=== PATIENT | male | born 2000 | race Caucasian/White ===

== ENCOUNTER 2018-02-18 23:39 | Day surgery (SDC) | payer OTHER, SELFPAY ==
[2018-02-18 23:40] VITALS: BP 133/88; PULSE 66; RESP 18; TEMP 36.4; O2SAT 97; BMI 22.6
--- NOTE | 2018-02-18 23:51 | US_ITS ---
STUDY: SCROTUM ULTRASOUND REASON FOR EXAM: Male, 17 years old. Right testicular pain and swelling TECHNIQUE: Ultrasound evaluation of the scrotum was performed with color Doppler and static min-scale imaging. COMPARISON: None. FINDINGS: The study was started but not completed. The patient's surgeon who was present at the examination asked the examination to be terminated once he saw there was no flow through the right testicle. . US/Testicular with Arterial Flow IMPRESSION: Incomplete study. Right testicular torsion suspected. Electronically Signed: Jase Pepe, at 1:25 EDT Tel , Service support ,
[2018-02-18] MEDS: Ondansetron 4 MG/2 ML Vial IV (23:57)
[2018-02-18] MEDS: HYDROmorphone 1 MG/ML Syringe IV (23:57)
[2018-02-19] VITALS (7 sets, daily range): BP systolic 94–122; BP diastolic 51–80; PULSE 69–102; RESP 15–16; TEMP 36.3–37.1; O2SAT 93–100; BMI 22.6
[2018-02-19 00:17] LABS: Absolute Lymphocyte Count 2.52 X10^3/ul (0.83-4.51); Absolute Neutrophil Count 3.6 X10^3/uL (2.0-7.7); Basophil# 0.03 X10^3/uL; Basophil% 0.4 % (0-1); Eosinophil# 0.08 X10^3/uL; Eosinophils% 1.2 % (0-5); Hemoglobin 15.2 g/dl (13.0-16.5); Lymphocyte # 2.52 X10^3/ul (4.0); Lymphocyte % 36.7 % (19-41); Mean Corp Hgb Conc 36.2 g/gl (32-36); Mean Corpuscular Volume 85.7 fL (80-94); Mean Platelet Vol. 10.9 fl (6.2-12.0); Monocyte% 8.7 % (0-10); Neutrophil # 3.63 X10^3/uL (2.7-7.7); Neutrophil % 52.9 % (47-70); Platelet Count 184 K/mm3 (150-450); RBC Distribution Width SD 37.2 fl (35.1-43.9); White Blood Count 6.9 K/mm3 (4.4-11.0)
[2018-02-19 00:18] LABS: POSITIVE COUNT NO; POSITIVE DIFFERENTIAL NO; POSITIVE MORPHOLOGY NO
--- NOTE | 2018-02-19 00:25 | HP.PCM_ITS ---
Problem List (1) Right testicular torsion Status: Acute History of Present Illness Date of Admission: 02/19/18 Chief Complaint: Right testicular pain The patient is a 17 year old male with a sudden onset of right testicular pain came to the emergency room with severe pain, on exam has a swollen right testicle consistent with torsion of the testicle plan is to take the patient immediately the emergency room and immediately to the operating room for exploration detorsion and orchiopexy, expanded the patient rare chance that the remove the testicle Past Medical History Allergies No Known Allergies Allergy (Verified 02/18/18 23:42) Home Medications: Ambulatory Orders Medication Instructions Recorded NK [NK] 02/18/18 Surgical History: no surgical history Psychiatric History: No pertinent psych hx Lives: Spouse/ Significant Other Smoking Status: Never smoker Tobacco Use: Non-smoker Alcohol: None Drugs: None - *Family History Maternal History Items: No pertinent history Review of Systems Constitutional: Denies: Chills, Fever, Weight Change HEENT: Denies: Head Aches, Sinus Congestion, Sinus Drainage Cardiovascular: Denies: Chest Pain, Palpitations Respiratory: Denies: Cough, Shortness of breath at rest, Sputum production Gastrointestinal: Denies: Abdominal Pain, Nausea, Vomiting Genitourinary: Denies: Dysuria Musculoskeletal: Denies: Joint Pain, Joint Tenderness Skin: Denies: Rash, Wounds Neurological: Denies: Numbness, Tingling, Focal weakness Psychiatric: Denies: Anxiety, Depression, Homicidal Ideations, Suicidal Ideations Hematologic/ Lymphatic: Denies: Easy Bruising, Easy Bleeding VTE Information - Inpt Only VTE Present on Admission: No VTE Mechan Device Prophylaxis: SCD's Patient Problems: Active and Suspected Problems Right testicular torsion (Acute) - Physical Exam General: Alert, Oriented x3, Cooperative HEENT: Atraumatic, PERRLA, EOMI, Normocephalic Neck: Supple, No JVD, Negative Carotid Bruits Lungs: Clear to auscultation, Normal air movement Cardiovascular: Regular rate, No murmurs Abdomen: Bowel Sounds Present, Soft, Non Tender Extremities: No edema, Capillary Refill Less than 3 Seconds Skin: No rashes, No breakdown Musculoskeletal: No Tenderness to Palpation of Joints or Extremities Neurological: Cranial nerves II-XII grossly intact Psych/Mental Status: Normal Affect, Appropriate Comment: Right testicle swollen black and blue and very tender Vital Signs Temp Pulse Resp BP Pulse Ox 97.6 F L 66 18 133/88 H 97 02/18/18 23:40 02/18/18 23:40 02/18/18 23:40 02/18/18 23:40 02/18/18 23:40 Oxygen Delivery Method Room Air Weight: 63.503 kg Body Mass Index (BMI) 22.6 Laboratory Tests Past 24 Hrs 02/18/18 02/18/18 23:59 23:59 WBC 6.9 RBC 4.90 Hgb 15.2 Hct 42.0 MCV 85.7 MCH 31.0 MCHC 36.2 H RDW 12.0 RDW Differential 37.2 Plt Count 184 MPV 10.9 Immature Gran % (Auto) 0.100 Neut % (Auto) 52.9 Lymph % (Auto) 36.7 Haines % (Auto) 8.7 Eos % (Auto) 1.2 Baso % (Auto) 0.4 Absolute Neuts (auto) 3.6 Absolute Lymphs (auto) 2.52 Total Counted Not Reportable Sodium Pending Potassium Pending Chloride Pending Carbon Dioxide Pending Anion Gap Pending BUN Pending Creatinine Pending Est GFR (MDRD) Af Amer Pending Est GFR (MDRD) Non-Af Pending BUN/Creatinine Ratio Pending Glucose Pending Calcium Pending Assessment/Plan All Active Problems Right testicular torsion (Acute) 17-year-old male presents to the emergency room with acute onset of right testicular torsion and pain suspect he has acute torsion planted taken the operating room today for exploration detorsion and bilateral orchiopexy
[2018-02-19 00:26] LABS: Anion Gap 9 (5-15); BUN 9 mg/dL (7-18); BUN/Creat Ratio 9.2 RATIO (10-20); Calcium,Total 8.9 mg/dL (8.5-10.1); Chloride 106 mmol/L (98-107); Creatinine, Serum 0.98 mg/dL (0.70-1.30); EST Glomerular Filtration Rate 104 mL/min (>60); Est Glom Filt Rate - Afr Amer 126 mL/min (>60); Glucose 109 mg/dL (74-106); Potassium 3.6 mmol/L (3.5-5.1); Sodium Level 141 mmol/L (136-145)
--- NOTE | 2018-02-19 00:27 | ED.DCSUM_ITS ---
- ER Visit Summary Date of Service: 02/19/18 Chief Complaint: [Right testicle pain] History of Present Illness: The patient is a 17 M [ presents the emergency department complaint of pain in his right testicle that started approximately an hour ago. Patient states that he was masturbating when he developed sudden onset of pain in his right testicle that has been severe. Patient thinks it is twisted. Patient states he had similar episode years ago that he was able to untwist himself and never required any type of surgery. Patient denies any trauma to his testicles. Patient denies fever or vomiting. He denies dysuria] Physical Examination: [HEENT-PERRLA, EOMI. Cranial nerves II through XII grossly intact. TMs clear. Mucous membranes moist. No adenopathy. Cardiovascular-regular rate and rhythm without murmur or ectopy Lungs-clear to auscultation, chest wall stable without crepitus or subcu emphysema Abdomen-normoactive bowel sounds, soft, nontender, no rebound or rigidity, no peritoneal signs. exam-patient has high riding right testicle that has somewhat of a horizontal lie and diminished cremasteric reflex on the right. Testicles very tender to palpation. Extremities-intact ?4, normal range of motion, normal pulses, atraumatic] Test Results: [CBC with differential was normal. Chemistries pending. Ultrasound of the testicle does not show flow to the right testicle.] Emergency Department Course and Treatment: After examining the patient I immediately discussed case with Dr. Richmond who is on for urology who presented to the emergency department to evaluate patient. Initially I attempted to deep towards the testicle by attempting to turn the testicle and open book type fashion however I was unsuccessful. Patient was medicated with Dilaudid and Zofran. [] Treatment Plan: [Patient will be taken to the operating room for orchiopexy] Disposition: [Admit] Impression: [Right testicle torsion] This note was generated with [employer] dictation software. It may contain incorrect words, spelling, and punctuation that were not noted in review of the chart prior to signing ED Disposition - Plan for ED Patient: Chief Complaint: Other, Pain/Inj Referrals: Care Physician,No Primary [Primary Care Provider] -
--- NOTE | 2018-02-19 00:27 | PCM.DC.URO ---
Discharge Diet: No Restrictions Discharge Activity: Return to Normal Activity, May Not Drive - for 2 days. Additional Activity Instructions:: f you have a catheter, remove on ___. If you have any problems after catheter is removed, call [phone] and ask for your doctor to be paged. Please be aware that pain medications may cause nausea. You should typically eat light foods as you take your pain medication. Pain medication may cause constipation, if this is a problem for you, please discuss with your doctor. Call your doctor if your incision/area has: Continuous Slow Oozing, Sudden Increased Bleeding, Increased Pain/ Swelling, Increased Redness, Foul Smelling Discharge, Swelling at the incision site Call your doctor if you observe: Fever of 101 or Higher Suture Line Care: Avoid Pulling/Pushing, Avoid Pinching/Bending Allergies/Adverse Reactions: Allergies No Known Allergies Allergy (Verified 02/18/18 23:42) Medications to take at Discharge Hydrocodone/Acetaminophen [[place] 5-325 Tablet] 1 ea PO Q4H PRN PRN 7 Days #20 tab 02/19/18 The following prescriptions were given: Hydrocodone/Acetaminophen [[place] 5-325 Tablet] 1 ea PO Q4H PRN PRN 7 Days #20 tab PRN Reason: Pain Primary Care Physician: Care Physician,No Primary [Primary Care Provider] - Test Results: Test results from this visit will be discussed in further detail at your follow-up appointment, if applicable. Please Follow Up With: Kory Richmond MD When: in 2 weeks, please call to make an appointment.
[2018-02-19] MEDS: Bupivacaine Mpf 0.5% 30 ML VIAL (01:29)
--- NOTE | 2018-02-19 01:33 | PCM.OPRPT ---
Problem List (1) Right testicular torsion Status: Acute Report of Operation Date of Procedure: 02/19/18 Pre-Operative Diagnosis: Right testicular torsion Post-Operative Diagnosis: Same Surgery/Procedure Performed:: Scrotal exploration detorsion of the right testicle bilateral orchiopexy, scrotal Description of Surgical Findings:: 17-year-old male taken back to the operating room at the smooth induction of general anesthesia he was placed supine on the table the testicles are shaved prepped and draped in usual sterile fashion made an incision the midline raphae dissected down to the right testicle through the dartos muscle layer and the tunica albuginea opened of the testicle a lot of fluid came out and then deliver the testicle it was bluish and saw there was twisted 180? untwisted the testicle and it pinked up real nicely immediately burned off the appendix of the testicle went to the left side opened up the dartos layer to the Sarah deliver the testicle this was normal or not the tunica burned off the appendix of the testicle on the left side I then performed 3 point fixation on the right testicle using nonabsorbable braided suture after 3 point fixation was complete in the right side with the left side to 3 point fixation again with soft braided nonabsorbable suture once both testicles are fixed in the in the scrotum then I closed the midline incision first layer was closed with a 3-0 chromic and the second layer was closed with 4-0 Monocryl running in the skin and then Dermabond was put on the skin. Both testicles were viable were fixed in the scrotum in good position patient will go home today in follow-up in the office in about a week. Type of Anesthesia:: General Drains: none - Admit VTE Documentation VTE Present on Admission: No VTE Mechan Device Prophylaxis: SCD's VTE Pharm Prophylaxis ordered?: No Reason prophylaxis not ordered:: Treatment Not Indicated
== END 2018-02-19 03:03 | disposition home or self-care (01) ==
LOC: ED 02-19 00:11 → SDC 02-19 00:26
PROVIDERS: Emergency Provider Emergency Medicine; Family Provider Pediatrics; PCP Pediatrics; Visit Provider Urology
PROC: (CPT 54600; principal; 2018-02-19 01:00)
DX: N44.00 Torsion of testis, unspecified (principal)
CPT/HCPCS: 00930; 54600; 54620; 76870; 80048; 85025; 93976; 99285; J7030; J7120; A4216; J2405

== ENCOUNTER 2020-12-14 16:34 | Outpatient (RCR) | payer MEDICARE, SELFPAY ==
[2018-02-19 00:22] VITALS: BMI 22.6
== END 2021-01-18 23:59 ==
LOC: IMMUN 16:34
PROVIDERS: Visit Provider Family Medicine
DX: Z23 Encounter for immunization (principal)
CPT/HCPCS: 0001A; 0002A; 91300

== ENCOUNTER → 2022-04-14 | Outpatient (CLI) | payer BC, SELFPAY ==
--- NOTE | 2022-04-14 11:40 | US_ITS ---
INDICATION: LT GROIN MASS EXAMINATION: US Scrotum and Vascular Doppler Complete TECHNIQUE: Realtime ultrasound of the testicles was performed with grayscale, Color Doppler and spectral Doppler analysis. COMPARISON: Scrotal ultrasound from 02/19/2018. FINDINGS: RIGHT: TESTIS: Right testicle measures 5 x 3.6 x 2.2 cm. Normal in size and echotexture, without focal lesion. COLOR DOPPLER: Normal arterial flow present in the testicle with monophasic waveforms. EPIDIDYMIS: Normal in size and echotexture, with small 2 mm anechoic cyst at the epididymal head. Normal color Doppler flow pattern in the epididymis. HYDROCELE: No significant hydrocele. VARICOCELE: None. LEFT: TESTIS: Left testicle measures 5.1 x 2.7 x 2.4 cm. Normal in size and echotexture, without focal lesion. COLOR DOPPLER: Normal arterial flow present in the testicle with monophasic waveforms. EPIDIDYMIS: Normal in size and echotexture, with a small 2 mm anechoic cyst at the epididymal head. Normal color Doppler flow pattern in the epididymis. HYDROCELE: No significant hydrocele. VARICOCELE: None. OTHER: No groin mass demonstrated. US/Testicular with Arterial Flow IMPRESSION: Scrotal ultrasound with no acute findings. Small, benign bilateral epididymal head cysts. Electronically Signed: Avery Parekh MD at 2:24 EDT ,
--- NOTE | 2022-04-14 11:41 | US_ITS ---
STUDY: SUPERFICIAL ULTRASOUND - LEFT GROIN REASON FOR EXAM: Male, 21 years old. LT GROIN MASS TECHNIQUE: A superficial ultrasound was performed with real-time and static min-scale imaging. COMPARISON: None. FINDINGS: Several ovoid, hypoechoic lesions within left groin at the area of palpable abnormality, compatible with lymph nodes. Largest measures 2 x 0.5 x 1.7 cm. 2 other adjacent measured lymph nodes are 1.5 x 0.8 x 1.3 cm and 1.8 x 0.6 x 1.2 cm. US/Ext Non Vasc Limited/Soft Tiss IMPRESSION: Cluster of enlarged lymph nodes within left groin. Electronically Signed: Avery Parekh MD at 2:28 EDT ,
== END | disposition home or self-care (01) ==
LOC: US 11:37
PROVIDERS: PCP Family Medicine; Visit Provider Family Medicine
DX: R19.09 Other intra-abdominal and pelvic swelling, mass and lump (principal)
CPT/HCPCS: 76870; 76882; 93976

== ENCOUNTER → 2022-04-26 | Outpatient (CLI) | payer BC, SELFPAY ==
--- NOTE | 2022-04-26 07:03 | CT_ITS ---
INDICATION: Abdominal pain EXAMINATION: CT ABDOMEN AND PELVIS WITH CONTRAST - CT Abdomen And Pelvis W/ Contrast Injection TECHNIQUE: Helically acquired images were obtained of the abdomen and pelvis following IV contrast. A radiation dose optimization technique was used for this scan. IV Contrast dosage and agent: 100 mL of ISOVUE-370 Oral contrast: Yes/Redicat. COMPARISON: Ultrasound studies obtained on 04/14/2022 and 02/19/2018.. FINDINGS: LOWER CHEST: Lung bases are clear. No cardiomegaly or pericardial effusion. LIVER: Homogeneous. No focal mass. GALLBLADDER AND BILIARY TREE: No calcified gallstones. No gallbladder distension or wall edema. No intra- or extrahepatic biliary ductal dilation. PANCREAS: No focal cystic or solid mass. SPLEEN: Normal size without focal cystic or solid mass. ADRENAL GLANDS: No nodules. KIDNEYS AND URETERS: Normal renal size and position. No hydronephrosis. PERITONEUM: No ascites or free air. No other fluid collection. BOWEL: Stomach is unremarkable. No significant wall thickening or distention of the small bowel loops is seen. Thickening of the wall of the ascending colon and the proximal transverse colon is visualized, mild prominence adjacent vascularity is seen but no significant stranding of the adjacent fat planes is visualized to suggest prominent inflammatory changes. The distal transverse colon and descending colon demonstrate no significant wall thickening, abundance of stool is visualized in the rectosigmoid. LYMPH NODES: Scattered mesenteric and retroperitoneal lymph nodes are seen. VESSELS: Aorta is non-dilated. URINARY BLADDER: Unremarkable. REPRODUCTIVE ORGANS: No pelvic masses. ABDOMINAL WALL: No discrete abdominal or pelvic wall hernia. Prominent vessel/varicosities visualized in the medial aspect of the left pubic region seen in the subcutaneous soft tissues overlying the inferior aspect of the left rectus muscle best visualized on axial series 2 image 98, these varicose vessels are visualized connecting to the left femoral vessels seen on axial series 2 image 114. No evidence of connection to the prominent left inguinal vessels. Prominent vessels visualized in the left scrotal sac consistent with a left varicocele. Bilateral inguinal lymphadenopathy is seen. BONES: No lytic or blastic abnormality. CT/Abdomen/Pelvis WITH Contrast IMPRESSION: Suggestion of colitis involving the ascending and proximal transverse colon. Scattered mesenteric lymphadenopathy. No evidence of peritoneal collections is seen. Abundance of stool in the rectosigmoid. Left varicocele. Varicose veins visualized in the left pubic region some appear to be thrombosed, these vessels appear to be connected to the left femoral veins.. Electronically Signed: Mike Gaines MD at 10:15 EDT ,
== END | disposition home or self-care (01) ==
PROVIDERS: PCP Family Medicine; Referring Provider Surgery; Visit Provider Surgery
DX: R10.9 Unspecified abdominal pain (principal)
CPT/HCPCS: 74177; Q9967

== ENCOUNTER → 2022-06-12 | Outpatient (CLI) | payer BC, SELFPAY ==
--- NOTE | 2022-06-12 08:01 | VDLE_ITS ---
Reason For Study: Varicose Veins RIGHT LEFT CFV is compressible, spontaneous, phasic, CFV is compressible, spontaneous, phasic, competent and demonstrates normal competent, and demonstrates normal augmentation. augmentation. FV is compressible, spontaneous, phasic, FV is compressible, spontaneous, phasic, competent and demonstrates normal competent and demonstrates normal augmentation. augmentation. POP V is compressible, spontaneous, phasic, POP V is compressible, spontaneous, phasic, competent and demonstrates normal competent and demonstrates normal augmentation. augmentation. T/P Trunk is compressible. T/P Trunk is compressible. PTV is compressible. PTV is compressible. RT PerV is partially compressible with areas LT PerV is compressible. of hyperechoic intraluminal echogenicity. SFJ is competent and measures 0.76 x 0.77 cm. SFJ is competent and measures 0.55 x 0.55 GSV proximal thigh measures 0.40 x 0.39 cm. cm. GSV at knee measures 0.36 x 0.35 cm. GSV proximal thigh measures 0.45 x 0.48 cm. GSV is competent throughout. GSV at knee measures 0.40 x 0.42 cm. SSV at junction is competent and measures GSV is competent throughout. 0.42 x 0.42 cm. SSV at junction is competent and measures LT ACC Saphenous branch and a Varicose Vein 0.41 x 0.43 cm. in supra pubic area show non-compressibility SSV proximal calf is competent and measures and mixed intraluminal echogenicities. 0.39 x 0.39 cm. Vein Wall thickening noted in mid and distal Procedure calf of LT GSV. Exam performed in department. This is a venous duplex using B-mode, color flow and spectral Doppler. The exam was diagnostic. VL/Venous Duplex US - Alex Extrem Interpretation Summary Deep veins of the bilateral lower extremities are patent and compressible segme ntally. There is no evidence of bilateral lower extremity deep vein thrombosis. The bilateral great saphenous veins appear patent and compressible segmentally. Subacute superficial thrombosis in suprapubic varicosities and left accessory s aphenous vein branch Ordering Physician: Uche Holland Referring Physician: Uche Holland Performed By: Mars Klein RVT
== END | disposition home or self-care (01) ==
PROVIDERS: PCP Family Medicine; Referring Provider Surgery Trauma Surgery; Visit Provider Surgery Trauma Surgery
DX: I86.8 Varicose veins of other specified sites (principal); I83.812 Varicose veins of left lower extremity with pain
CPT/HCPCS: 93970

== ENCOUNTER 2022-06-14 05:41 | Day surgery (SDC) | payer BC, SELFPAY ==
[2022-06-06 13:13] LABS: Hematocrit 42.7 % (40-54); Mean Corp Hgb Conc 35.1 g/dL (32-36); Mean Corpuscular Volume 85.4 fL (80-94); Mean Platelet Vol. 10.5 fl (6.2-12.0); Platelet Count 166 K/mm3 (150-450); RBC Distribution Width CV 12.3 % (11.6-14.6); RBC Distribution Width SD 37.8 fl (35.1-43.9)
[2022-06-06 13:34] LABS: Anion Gap 4 (5-15); BUN 13 mg/dL (7-18); BUN/Creat Ratio 13.9 RATIO (10-20); Calcium,Total 8.9 mg/dL (8.5-10.1); Chloride 106 mmol/L (98-107); Creatinine, Serum 0.93 mg/dL (0.70-1.30); EST Glomerular Filtration Rate 106 mL/min (>60); Est Glom Filt Rate - Afr Amer 128 mL/min (>60); Glucose 92 mg/dL (74-106); Potassium 3.6 mmol/L (3.5-5.1); Sodium Level 139 mmol/L (136-145)
[2022-06-14] VITALS (11 sets, daily range): BP systolic 108–116; BP diastolic 69–79; PULSE 77–99; RESP 16–18; TEMP 36.3–37.1; O2SAT 94–100; BMI 26.6
--- NOTE | 2022-06-14 | IMM_PTH ---
PATIENT: JAKE BOURGEOIS LOC: [facility] [place] [facility] [place][id number] AGE/SX: 22/M ROOM: RE06/14/[address]: Dr. Uche Holland MD : 2000 BED: DIS: 06/14/2022 SPEC #: [id number] RECD: 06/15/22 13:17 STATUS: [place] REQ #: [id number] JAMIE: 06/14/22 00:[address]: Uche Holland DEPT: IMMUNOHISTOCHEMISTRY RECD BY: Alesha Vazquez ENTERED: 06/15/22 13:19 SP TYPE: IMMUNO OTHR DR: Magda Parks DO Tissues: Inguinal region, NOS Procedures: Synapto (add) SMA (add) CALPONIN-1 (add) CD34 (add) CD56 (add) CHROMO (add) CK8 (add) DESMIN (add) Vimentin (add) Pankeratin (initial) MELAN-A (add) S-100 (add) PHYSICIAN & [address] [address] SPECIMEN INFORMATION: Tissue Source: Vascular tissue left groin, excisional biopsy Clinical Info: Vascular tissue left groin Specimen Number: [id number] CPT code: 08703, 76996 x11 METHODOLOGY: Deparaffinized sections of prefer/formalin-fixed tissue or PAP/DQ stained slides are incubated with monoclonal/polyclonal antibodies/oligonucleotide probes. Localization is made via biotin free immunoperoxidase method. Appropriate controls are performed and reacted as expected. Results on target cell population are indicated in the following table: RESULTS: ANTIBODY / CLONE RESULT AE1-3 (AE1/AE3/PCK26) negative CK8 (02cuikM88) negative Vimentin (V9) positive Calponin-1 (CO586M) positive CD34 (QBEnd-10) negative Actin (1A4) positive Desmin (CE-R-11) negative Melan A (A103) negative S-100 (4C4.9) negative CD56 (123C3.D5) negative Chromo (LK2H10) negative Synapto (polyclonal) negative These tests were developed and their performance characteristics determined by [facility]. They may not have been cleared or approved by the U.S. Food and Drug Administration. The FDA has determined that such clearance or approval is not necessary. The above immunohistochemical/dualISH markers are ordered and reviewed by the Pathologist. INTERPRETATION: Vascular tissue left groin, excisional biopsy: Consistent with focal areas of glomus tumor. SJ:maya 06/16/2022
[2022-06-14] MEDS: Lactated Ringers 1,000 ML 15 ML IV ×2 (06:43→09:46)
[2022-06-14] MEDS: Cefazolin 2 GM in 0.9% Normal Saline 100 ML IV (08:08)
--- NOTE | 2022-06-14 08:11 | PCM.HP.BLA ---
History and Physical [facility] Medical History? Anxiety and depression Surgical History? History of testicular surgery (~2017) Family History? Mother AsthmaGrandmother Breast cancer Social History? Smoking Status:? Never smoker HPI HPI HPI: JAKE BOURGEOIS, is a 22 M who presents to the office today for evaluation of left lower quadrant bulge, discoloration. 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 No leg varicose veins, no edema, no prior DVT. Had testicular torsion treated about 4-5 years ago. ROS General General: Yes fatigue; No weight change, appetite, colon cancer, breast cancer or weakness HEENT HEENT: No difficulty swallowing, eye injury, eye surgery, swollen glands or hoarseness Endo Endocrine: No thyroid disease, diabetes mellitus, thyroid cancer, Hair loss, heat intolerance or cold intolerance Skin Skin: No rash or changing moles Musc Musculoskeletal: No back problems, arthritis, rheumatoid arthritis, gout or joint pain Cardio Cardiovascular: No murmur, pacemaker, heart disease, atrial fibrillation, high blood pressure, heart attack, heart stent, palpitations, shortness of breat with exertion or chest pain Psych Psychiatric: Yes depression; No anxiety or hearing voices Resp Respiratory: No shortness of breath, No sleep apnea, No cough, No COPD, No asthma, No emphysema and No wheezing Gastro Gastrointestinal: Yes abdominal pain, No nausea or vomiting, No diarrhea, Yes constipation, No blood in stool, No acid reflux, No hemorrhoids, No ulcers, No gallbladder problem and No black,tarry stools Kev Hematologic: No blood thinners, No blood disorders, No bleeding, No anemia and No blood clots Neuro Neurologic: No system reviewed and no additional complaints, except as documented, No as per HPI, No abnormal gait, No abnormal hearing, No abnormal movements, No abnormal speech, No behavioral changes, No burning sensations, No confusion, No convulsions, No disequilibrium, No dizziness, No localized weakness, No frequent falls, No headache(s), No lack of coordination, No loss of vision, No memory loss, No numbness, No other visual disturbances, No radicular pain, No restless legs, No sensory deficit, No syncope, No tingling, No tremor(s), No weakness and No other Exam Const General: cooperative, healthy appearing, comfortable, no acute distress and well developed Nutritional Appearance: well nourished Orientation: alert, awake and oriented x3 HENMT Head: normocephalic and atraumatic Ears: hearing grossly normal bilaterally Nose: external nose normal Eyes General: appearance normal, both eyes and all related structures EOM: EOM intact bilaterally Neck Neck: normal visual inspection, full ROM and trachea midline Resp Effort & Inspection: normal respiratory effort, able to speak in complete sentences, symmetric chest movement, no audible wheezes, not labored, no stridor and no use of accessory muscles Cardio Rate: regular rate Rhythm: regular rhythm Pulses: femoral pulses present, posterior tibial pulses present and dorsalis pedis present Other: varicose veins with palpable cord, left suprapubic GI Inspection: non-distended Palpation: soft, no hernias, no pulsatile masses and nontender Skin General: no rashes or lesions noted and no erythema Wounds: no wounds Neuro Cranial Nerves: CN's II-XI intact bilaterally and EOM intact bilaterally Speech: speech normal Gait: normal gait Motor: strength 5/5 throughout Sensory Exam: no sensory deficits noted Extremities Lower Extremity Edema: None: Bilateral Veins: Left: Varicose Veins (left suprapubic ) Psych Appearance: grossly normal and well kempt Mental Status: mental status grossly normal Mood: congruent mood Speech and Movement: speech and movement normal Thought Content: normal Judgment: judgment good Coding Level of Care Code Off vis,new,level 3 Diagnoses Abdominal varicosities? I86.8 Varicose veins of left lower extremity with pain? I83.812 Assessment and Plan Assessment and Plan (1) Abdominal varicosities: ?Status:?Chronic ?Comment: CT- images reviewed, cluster of varicose veins left suprapubic with feeder branches communicating with sapheno-femoral junction ?Plan: -plan venogram/IVUS at same time as phlebectomy
--- NOTE | 2022-06-14 11:05 | TISS_PTH ---
PATIENT: JAKE BOURGEOIS LOC: [facility] [place] U#:[id number] AGE/SX: 22/M ROOM: RE06/14/[address]: Dr. 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 Extensive areas of organizing hematoma formation. See comment. SJ:maya 06/15/2022 COMMENT Immunohistochemistry ([id number]) supports the diagnosis of focal areas of glomus tumor. MICROSCOPIC DESCRIPTION Slides are reviewed. GROSS DESCRIPTION Received in fixative is one container labeled with the patient's name and designated left groin. The specimen consists of three irregular fragments of yellow-fisher soft tissue ranging in size from 1.5 to 6 cm. Serial sections reveal a firm, fisher-pink nodule measuring 3.5 x 2.5 x 2 cm. Serial sections of this nodule reveal hemorrhagic cut surfaces. Serial sections of the remainder of the tissue reveal yellow-white cut surfaces. No distinct nodules are identified in this tissue. Salt Grinder sections are submitted in five cassettes as follows: 1-3 ? nodule with hemorrhagic cut surfaces, 4 & 5 - retention representative sections of remainder of tissue. / AM:maya 06/14/2022 TC:1 CPT: 02545
[2022-06-14 11:19] LABS: Surgical Specimen Collection SEE PATHOLOGY REPORT
--- NOTE | 2022-06-14 11:38 | DCINST_ITS ---
Discharge Instructions Procedure Narrative: Venogram, IVUS, Bilateral Iliac Vein Stents Stab Phlebectomy, left suprapubic varicose veins Diet Discharge Diet: No restrictions Activity May shower in (days): 2 May resume sexual activity in: 10-14 days Weight Bearing Status: Weight bearing as tolerated Lifting Restrictions: Do not lift > 20 lbs for 2 weeks Dressing / Incision Call your doctor if your incision/area has: Increased Redness and Foul Smelling Discharge Call your doctor if you observe: Fever of 101 or Higher Remove Dressing in: 1 week ((Provena vacuum dressing) ) Additional Dressing/Incision Instructions:: remove lower dressing 2 days Follow Up Care Test Results: Test results from this visit will be discussed in further detail at your follow- up appointment, if applicable. Discharge Plan Admission Attending Provider: Uche Holland Primary Care Provider: Magda Parks Discharge Orders/Prescriptions Prescriptions: New clopidogrel [Plavix] 75 mg tablet 75 mg PO DAILY Qty: 90 3RF oxycodone 5 mg tablet 5 mg PO Q8H PRN (Reason: pain) 5 Days Qty: 15 0RF Continued sodium chloride 0.65 % Drops 2 drp INTRANASAL Q2H MDD ALLERGIES PRN (Reason: PRN) Referrals / Follow Up: Magda Parks DO [Primary Care Provider] - Disposition Disposition (needs filled in before D/C Order can be placed): Home, Self Care
[2022-06-14] MEDS: Clopidogrel Bisulfate 300 MG Tablet PO (11:49)
--- NOTE | 2022-06-14 18:01 | PCM.OPRPT ---
Report of Operation Date of Procedure: 06/14/22 Pre-Operative Diagnosis: Abdominal wall varicosities with superficial phlebitis Post-Operative Diagnosis: Same. Plus inferior vena cava and bilateral iliac compression. Surgery/Procedure Performed:: Inferior vena cava venogram with intravascular ultrasound of the inferior vena cava, bilateral common iliac veins, bilateral external iliac veins Angioplasty and stenting of the bilateral common iliac veins Stab phlebectomy abdominal wall varicosities single incision Description of Surgical Findings:: Left common iliac vein with 75% compression on intravascular ultrasound, right common iliac vein with 62% compression on intravascular ultrasound. Surgeon: Uche Holland Type of Anesthesia: General Specimen's removed: Abdominal wall varicosities Estimated Blood Loss (mL): 50 Description of Procedure: HPI: Patient is a 22-year-old male with painful prominent left lower quadrant and suprapubic varicosities initially were suspected be hernia. A CT scan revealed that these in fact were large fundal varicose veins with feeder branches emanating from the proximal saphenous vein. He had reflux studies which revealed no infrarenal reflux, and given the odd location is suspected of more central venous pathology. He is taken now for venogram with intravascular ultrasound to assess for central venous pathology as well as excision of the painful varicose vein bundle. Description of procedure: Upon obtaining form consent and verification correct patient procedure site patient was taken to the [facility] where he was positioned prepped and draped you sterile fashion and placed in general anesthesia. Ultrasound used to locate the saphenofemoral junction and the origin of the branch from the left saphenous vein that fed into the varicosities. Time was performed and skin incision was made over the saphenofemoral junction. Bovie cautery was dissect down through subcutaneous tissue and self-retaining tractors put in position. Once the saphenous vein was visualized sharp section use dissected proximal and distal with the branch feeding the varicose vein cluster identified and dissected free. Writing was placed Vesseloops around saphenous vein proximal and distal as well as around the branch. Micropuncture needle and wire were then used to access the lujan of the saphenofemoral junction exchanged out then for micropuncture sheath. Through the micropuncture sheath injection venogram was performed which revealed a widened appearing common iliac vein. Through the micro sheath a J-wire was advanced and the micropuncture sheath exchanged out for an 8 Burkinan sheath. Through the 8 Burkinan sheath intravascular ultrasound was advanced into the inferior vena cava and recorded pullback performed which revealed the high-grade compression of the left common iliac vein at the vena cava confluence. The ultrasound probe was then withdrawn and a AL-1 guide was advanced in the inferior vena cava allowed to form and then pulled down to rest upon the base of the confluence. Hand-injection venogram was performed to confirm the location of the confluence, and given the location of the superior extent of the compression felt that extension of the vena cava with the stent was required. Ultrasound guidance the right common femoral vein was accessed in retrograde fashion using micropuncture needle and wire. This was then exchanged for micropuncture sheath through which hand-injection ilio femoral venograms performed revealing satisfactory location. Through the micropuncture sheath Hi-Dis(Mosen) wire is advanced and the micropuncture sheath exchanged out for a 9 Burkinan sheath. The left femoral 8 Burkinan sheath then exchanged out for a 9 Burkinan sheath. Patient was then heparinized allowed to circulate for 3 minutes. Intravascular sound then advanced via the right femoral access sheath again revealing compression of the distal vena cava and the mid right common iliac vein. Reference vessel diameters were obtained and pair of Medtronic Abre venous stents were selected, 18 x 150 for the left and 16 x 150 for the right. The venous stents were then advanced in the position based on markings obtained by intravascular ultrasound, and deployed simultaneously to the distal aspect of the inferior vena cava extending into the common iliac veins and the external iliac veins bilaterally. The liver system was then withdrawn and the stent then postdilated with an 18 mm balloon for the left and 16 mm balloon for the right. These were simultaneously inflated sequentially throughout the stents. Intravascular sound then readvanced via each of the femoral access sheaths revealing satisfactory stent expansion with no residual compression and satisfactory wall apposition throughout. Completion venogram confirmed brisk contrast transit through the stented segments with some valvular incompetence noted in the left internal iliac vein. The right femoral sheath was then withdrawn a minute pressure held for 10 minutes after which satisfactory stasis was noted. The sheath from the left femoral cutdown was then withdrawn and the saphenous vein occluded with Vesseloops. Venotomy was repaired with 6-0 Prolene in transverse orientation. After releasing the Vesseloops satisfactory stasis was noted. The sidebranch feeding into the varicosity was then ligated with medium clips. Next transverse incision was made over the varicose vein cluster. Bovie dissection was dissect free differentially and the entire cluster of varicosities extracted including a segment that was thrombosed. Incision was inspected hemostasis, Tisseel was then applied and incision closed with 3-0 Vicryl for Monocryl Dermabond and Prevena for the skin. The occlusion case patient was awake from anesthesia taken to the recovery room with dissipated discharge home. Grafts/Implants Used: Medtronic Abre 18 x 150, left; Medtronic Abre 16 x 150, right
== END 2022-06-14 16:14 | disposition home or self-care (01) ==
LOC: SDC 05:44 → AC 05:45
PROVIDERS: PCP Family Medicine; Referring Provider Surgery Trauma Surgery; Visit Provider Surgery Trauma Surgery
DX: Q27.39 Arteriovenous malformation, other site (principal); I80.8 Phlebitis and thrombophlebitis of other sites; F32.A Depression, unspecified; F41.9 Anxiety disorder, unspecified; Z79.82 Long term (current) use of aspirin
CPT/HCPCS: 36010; 36415; 37238; 37252; 37253; 75825; 76937; 80048; 85027; 86850; 86900; 86901; 88305; 88341; 88342; C1725; C1753; C1769; J7040; J7120; Q9967; C1876; C1887; C1894; J2405

== ENCOUNTER 2022-06-18 20:53 | Emergency (ER) | payer BC, SELFPAY ==
[2022-06-18 20:53] VITALS: BP 129/83; PULSE 108; RESP 16; TEMP 37.6; O2SAT 100; BMI 26.9
--- NOTE | 2022-06-18 22:15 | ED.RN ---
Pt SO requesting antibiotics and to leave without doing any anything else. Explained procedures and that doctor would be updated. Dr. Etienne in to talk to pt
--- NOTE | 2022-06-18 22:18 | EDS_ITS ---
HPI History of Present Illness Chief Complaint: Fever Narrative Narrative: Patient is a 22-year-old male who underwent surgery for abdominal varicosities on June 15. He states that he had a wound VAC placed at that time and has been doing well. He states tonight he noticed a temperature of 100.7. He states he feels subjective fevers and chills otherwise there is no congestion drainage cough sore throat abdominal pain nausea vomiting diarrhea or dysuria. He states he does have an appointment with his surgeon in the morning but because of the low-grade temperature this evening was concerned and comes in for evaluation. [facility] Medical History (Updated 06/18/22 @ 22:[address] Sal Etienne, DO) Alcohol use Anxiety and depression Non-smoker Varicose vein of leg Home Medications clopidogrel 75 mg tablet (Plavix) 75 mg PO DAILY #90 tabs 06/14/22 [Rx Last Taken Unknown] oxycodone 5 mg tablet 5 mg PO Q8H PRN pain 5 days #15 tabs 06/14/22 [Rx Last Taken Unknown] aspirin 81 mg capsule 81 mg PO DAILY 06/18/22 [History Last Taken Unknown] Allergy/AdvReac Type Severity Reaction Status Date / Time No Known Allergies Allergy Verified 06/18/22 20:56 Family History Mother Asthma Grandmother Breast cancer Surgical History (Updated 06/05/22 @ 14:20 by Rach Chin) History of testicular surgery (~2016) Social History Smoking Status: Never smoker ROS ROS ED Constitutional Constitutional ED: Reports chills and fever(s) ENT ENT ED: Denies ear pain, rhinorrhea or sore throat Cardiovascular Cardiovascular: Denies chest pain Respiratory/Chest Respiratory/Chest: Denies cough or dyspnea Gastrointestinal Gastrointestinal: Reports abdominal pain; Denies diarrhea, nausea or vomiting Genitourinary Genitourinary ED: Denies dysuria Musculoskeletal Musculoskeletal: Denies myalgias Integumentary Denies rash Neurologic Neurologic: Denies headache(s) Hematologic/Lymphatic Hematologic/Lymphatic: Denies easy bleeding or easy bruising EXAM Physical Exam Const Vital Signs: 06/18/22 20:53 06/18/22 21:16 Temperature 99.7 F H Temperature Source Temporal Pulse Rate 108 H Respiratory Rate 16 Respiratory Effort Normal Non-Labored Respiratory Pattern Normal Blood Pressure 129/83 H Blood Pressure Mean 98 Pulse Ox 100 Oxygen Delivery Method Room Air Positive well nourished and well developed General Appearance ED: well developed HEENT Reports moist mucous membranes HEENT Narrative: No signs of infection in the posterior pharynx Eyes PERRL and EOMs intact bilaterally Neck supple Neck Narrative: No meningeal signs Resp normal respiratory effort and clear to auscultation bilaterally Cardio regular rhythm Rate: tachycardic and other Other Details: Slightly tachycardic rate with regular rhythm radial pulses are +2-4 bilaterally are equal and symmetric GI non-tender and non-distended GI Narrative: Patient has a wound VAC in place in the left lower quadrant of the abdomen. The wound appears clean dry and intact without surrounding redness warmth or discharge. No lymphangitic streaking. No pain with palpation of the abdomen or rigidity noted Auscultation: normoactive bowel sounds Palpation: soft Extremity normal to inspection Neuro oriented x3 and CN's II-XII intact bilaterally Sensorium / Orientation: alert Psych mental status grossly normal Skin no rashes or lesions noted Skin Narrative: Postsurgical changes to the abdomen as documented above MDM MDM MDM Narrative Medical decision making narrative: Patient presented to the ER and technically was afebrile with a temperature of 99.7. He reported he has not taken any type of antipyretic medication since noon today. We discussed obtaining a chest x-ray urine sample viral swabs and basic blood work secondary to his fever that was reported at home. However I informed him that his exam does not show any obvious cause of infection at this time and his wound appears normal for his postoperative day. The patient states that he is going to see his surgeon on Sunday morning and as his vitals are stable his temperature coming down without any type of medication in my exam not revealing acute infectious changes he does not want any work-up obtained. Therefore patient be discharged at this time. Discharge Plan Triage Chief Complaint: Fever ED Provider: Sal Etienne Dx/Rx/DC Orders Clinical Impression: Abdominal varicosities, Postoperative fever Instructions: ED Fever Control (Adult) Prescriptions: No Action clopidogrel [Plavix] 75 mg tablet 75 mg PO DAILY Qty: 90 3RF oxycodone 5 mg tablet 5 mg PO Q8H PRN (Reason: pain) 5 Days Qty: 15 0RF aspirin 81 mg Capsule 81 mg PO DAILY Primary Care Provider: Magda Parks Referrals: Magda Parks, DO [Primary Care Provider] - Activity Restrictions/Additional Instructions: Please continue to take Tylenol or Motrin for fever control and follow-up with your surgeon tomorrow as you have been directed for repeat evaluation and return to the ER should you have any further concerns Disposition Disposition: Home, Self Care Discharge Date/Time: 06/18/22 22:18
== END 2022-06-18 22:18 | disposition home or self-care (01) ==
PROVIDERS: Emergency Provider Emergency Medicine; PCP Family Medicine; Visit Provider Emergency Medicine
DX: I86.8 Varicose veins of other specified sites (principal); R50.82 Postprocedural fever; Z79.82 Long term (current) use of aspirin; Z79.01 Long term (current) use of anticoagulants
CPT/HCPCS: 99282

== ENCOUNTER 2022-07-11 08:29 | Emergency (ER) | payer BC, SELFPAY ==
[2022-07-11 08:30] VITALS: BP 125/81; PULSE 88; RESP 16; TEMP 36.2; O2SAT 97; BMI 27.1
--- NOTE | 2022-07-11 09:45 | EDS_ITS ---
HPI History of Present Illness Chief Complaint: Nosebleed Informant: patient Narrative Narrative: 22-year-old male on Plavix and aspirin due to abdominal varicosities presenting to the emergency department with nosebleed. Patient has had nosebleeds intermittently over the past several months. Today he is unable to get the nosebleed to stop at home and he is concerned that he is lost too much blood that he may be in shock. However just before examination he comes up to the nurses station and ask if since his blood pressure has been stable if he can go home because he is not having any further bleeding. He had been waiting 48 minutes. Nursing applied nasal pincers. He has not seen ENT but is considered doing it. [facility] Medical History Alcohol use Anxiety and depression Non-smoker Varicose vein of leg Home Medications clopidogrel 75 mg tablet (Plavix) 75 mg PO DAILY #90 tabs 06/14/22 [Rx Last Taken Unknown] aspirin 81 mg capsule 81 mg PO DAILY 06/18/22 [History Last Taken Unknown] Allergy/AdvReac Type Severity Reaction Status Date / Time No Known Allergies Allergy Verified 07/11/22 08:29 Family History Mother Asthma Grandmother Breast cancer Surgical History History of testicular surgery (~2017) Social History (Updated 07/11/22 @ 09:[address] Koby Deshpande DO) current gender identity: male Smoking Status: Never smoker ROS ROS ED Constitutional Constitutional ED: Denies chills or weight loss Eyes Eyes: Denies change in vision or diplopia ENT ENT ED: Reports other Details: See HPI/ ; Denies ear pain, rhinorrhea or sore throat Cardiovascular Cardiovascular: Denies chest pain, orthopnea, palpitations or racing heartbeat Respiratory/Chest Respiratory/Chest: Denies cough, dyspnea or orthopnea Gastrointestinal Gastrointestinal: Denies abdominal pain, diarrhea, nausea or vomiting Genitourinary Genitourinary ED: Denies dysuria, hematuria or urinary frequency Musculoskeletal Musculoskeletal: Denies arthralgias or myalgias Integumentary Denies abscess or rash Neurologic Neurologic: Denies headache(s) or weakness Psychiatric Psychiatric: Denies anxiety, depression, suicidal ideation or suicidal thoughts Endocrine Endocrinology: Denies polydipsia, polyphagia or polyuria Allergic/Immunologic Allergic/Immunologic ED: Denies mouth swelling, tongue swelling or urticaria EXAM Physical Exam Const Vital Signs: 07/11/22 08:30 Temperature 97.2 F L Temperature Source Temporal Pulse Rate 88 Respiratory Rate 16 Blood Pressure 125/81 H Blood Pressure Mean 95 Pulse Ox 97 Oxygen Delivery Method Room Air Positive well nourished and well developed General Appearance ED: well developed HEENT Reports normocephalic, head/scalp atraumatic and moist mucous membranes HEENT Narrative: There are clots in the nares. There is no obvious blood vessel in the anterior plexus to suggest anterior bleeding. Eyes PERRL and EOMs intact bilaterally Neck no lymphadenopathy, supple and no JVD Resp normal respiratory effort and clear to auscultation bilaterally Cardio regular rate, regular rhythm and no murmurs GI normal to inspection, nondistended, normoactive bowel sounds and non-tender Palpation: soft Back/Spine no CVA tenderness and normal ROM Extremity normal to inspection General Extremety ED: Negative for edema General Extremity: Negative for edema Neuro oriented x3 and CN's II-XII intact bilaterally Sensorium / Orientation: alert Motor Exam: strength 5/5 throughout Psych mental status grossly normal Mood & Affect: Negative for depressed or tearful Skin no rashes or lesions noted and no wounds MDM MDM MDM Narrative Medical decision making narrative: Clots were evacuated by the patient blowing. I do not see any active bleeding however the patient notes that he has been bleeding for multiple hours. Therefore a anterior posterior Rhino Rocket was placed. This was inflated to approximately 5 cc of air. He will be referred to ENT. Instructions to follow- up with them. Return if worsening or concerns Discharge Plan Triage Chief Complaint: Nosebleed ED Provider: Koby Deshpande Dx/Rx/DC Orders Clinical Impression: Epistaxis Instructions: ED Epistaxis (Adult) Prescriptions: No Action clopidogrel [Plavix] 75 mg tablet 75 mg PO DAILY Qty: 90 3RF aspirin 81 mg Capsule 81 mg PO DAILY Primary Care Provider: Magda Parks Referrals: Jamari Reed MD [Med Staff - Active Staff] - As soon as possible (Inform them that you have nasal packing in your nose from the emergency department when you call.) Magda Parks, [Primary Care Provider] - Disposition Disposition: Home, Self Care
== END 2022-07-11 09:54 | disposition home or self-care (01) ==
LOC: ED 09:49
PROVIDERS: Emergency Provider Emergency Medicine; PCP Family Medicine; Visit Provider Emergency Medicine
DX: R04.0 Epistaxis (principal); Z79.82 Long term (current) use of aspirin
CPT/HCPCS: 30901; 99282

== ENCOUNTER 2022-07-11 22:48 | Emergency (ER) | payer BC, SELFPAY ==
[2022-07-11 22:49] VITALS: BP 110/86; PULSE 107; RESP 15; TEMP 36.7; O2SAT 98; BMI 27.1
--- NOTE | 2022-07-11 23:36 | EDS_ITS ---
HPI History of Present Illness Chief Complaint: Other, Pain/Inj Onset/Context/Timing Onset: Today Context: Gradual Onset Timing: Continuous Quality: Pressure Location: Left nares Worsened by: Nothing Relieved by: Nothing Narrative Narrative: Presents requesting nasal packing to be removed. Patient has the left nares packed today for epistaxis. Patient states that the nasal packing is putting pressure on his upper teeth and nose. Patient states he cannot tolerate the pain anymore. Patient denies any bleeding from around the packing. Patient states he is having some trouble breathing through the left nares due to the packing. Patient denies any shortness of breath however. Patient denies any nausea or vomiting. Patient states he is on Plavix after having varicose vein surgery. [facility] Medical History Alcohol use Anxiety and depression Non-smoker Varicose vein of leg Home Medications clopidogrel 75 mg tablet (Plavix) 75 mg PO DAILY #90 tabs 06/14/22 [Rx Last Taken Unknown] aspirin 81 mg capsule 81 mg PO DAILY 06/18/22 [History Last Taken Unknown] Allergy/AdvReac Type Severity Reaction Status Date / Time No Known Allergies Allergy Verified 07/11/22 08:29 Family History Mother Asthma Grandmother Breast cancer Surgical History History of testicular surgery (~2017) Social History Smoking Status: Never smoker ROS ROS ED Constitutional Constitutional ED: Denies chills or fever(s) Eyes Eyes: Denies blurry vision or change in vision ENT ENT ED: Denies rhinorrhea or sore throat Cardiovascular Cardiovascular: Denies chest pain or palpitations Respiratory/Chest Respiratory/Chest: Denies cough or dyspnea Gastrointestinal Gastrointestinal: Denies nausea or vomiting Genitourinary Genitourinary ED: Denies dysuria or hematuria Musculoskeletal Musculoskeletal: Denies back pain or neck pain Integumentary Denies abscess or rash Neurologic Neurologic: Denies headache(s) or weakness Allergic/Immunologic Allergic/Immunologic ED: Denies mouth swelling or urticaria EXAM Physical Exam Const Vital Signs: 07/11/22 22:49 07/11/22 23:28 Temperature 98.1 F Temperature Source Temporal Pulse Rate 107 H Respiratory Rate 15 Respiratory Effort Normal Short of Breath Respiratory Pattern Normal Blood Pressure 110/86 H Blood Pressure Mean 94 Pulse Ox 98 Oxygen Delivery Method Room Air Positive well nourished and well developed General Appearance ED: well developed and NAD HEENT Reports moist mucous membranes HEENT Narrative: There is a rapid Rhino in place in the left nares. There is no active bleeding noted. The right nares is clear. Eyes PERRL and EOMs intact bilaterally Neuro oriented x3, CN's II-XII intact bilaterally and no sensory deficits noted Sensorium / Orientation: alert Motor Exam: strength 5/5 throughout Psych mental status grossly normal Skin no rashes or lesions noted MDM MDM MDM Narrative Medical decision making narrative: The balloon was deflated and the packing was removed from the left nares. There is still some friable mucosa in the left anterior nasal septum. Patient was advised that should he start having bleeding that is not controlled at home he would need to return and have packing placed again. Neosporin ointment was placed in the left nares. Patient was instructed to do this twice daily. Patient was instructed to follow-up with his primary care physician in 3 to 5 days. Patient was also instructed to follow-up with ENT as needed. Patient understood and was agreeable with the plan. All questions were answered. Discharge Plan Triage Chief Complaint: Other, Pain/Inj ED Provider: Uche Griffiths Dx/Rx/DC Orders Clinical Impression: Epistaxis Instructions: ED Epistaxis (Adult) Prescriptions: No Action clopidogrel [Plavix] 75 mg tablet 75 mg PO DAILY Qty: 90 3RF aspirin 81 mg Capsule 81 mg PO DAILY Primary Care Provider: Magda Parks Referrals: Jamari Reed MD [Med Staff - Active Staff] - 3-5 Days Magda Parks DO [Primary Care Provider] - 3-5 Days Disposition Disposition: Home, Self Care
--- NOTE | 2022-07-11 23:50 | ED.RN ---
pt reporting to have nosebleed again. Educated pt that packing could be reinserted if desired or we could put a clamp on it. Pt stating I have a clamp I will use, but I am never getting it packed again. education provided and dc papers given per pt request.
== END 2022-07-11 23:52 | disposition home or self-care (01) ==
PROVIDERS: Emergency Provider Emergency Medicine; PCP Family Medicine; Visit Provider Emergency Medicine
DX: R04.0 Epistaxis (principal)
CPT/HCPCS: 99282

== ENCOUNTER → 2023-07-20 | Outpatient (CLI) | payer BC, SELFPAY ==
--- NOTE | 2023-07-20 08:50 | AAVD_ITS ---
Reason For Study: S/P Bilateral iliac vein stents Inferior Vena Cava Proximal inferior vena cava measures 1.84 x 2.47 cm. in the cross-sectional axis. Proximal inferior vena cava measures 1.78 cm. in the longitudinal axis. Mid inferior vena cava measures 1.12 x 2.12 cm. in the cross-sectional axis. Mid inferior vena cava measures 1.34 cm. in the longitudinal axis. Distal inferior vena cava measures 1.36 x 1.80 cm. in the cross-sectional axis. Distal inferior vena cava measures 1.24 cm. in the longitudinal axis. The inferior vena cava has spontaneous, phasic flow throughout. Left Common Iliac Vein Left common iliac vein measures 1.53 x 1.54 cm. in the cross-sectional axis. Left common iliac vein measures 1.3 cm. in the longitudinal axis. The left common iliac vein has spontaneous, phasic flow throughout. Stent noted in the left CIV and EIV. Normal flow throughout. Right Common Iliac Vein Right common iliac vein measures 1.50 x 1.50 cm. in the cross-sectional axis. Right common iliac vein measures 1.58 cm. in the longitudinal axis. The right common iliac vein has spontaneous, phasic flow throughout. Stent noted in the right CIV and EIV. Normal flow throughout. Procedure Aorta IVC Iliac vasculature or bypass grafts [id number]. Exam performed in department. VL/Abd Aortic/IVC Duplex scan Interpretation Summary Patent IVC and bilateral iliac vein stents with normal flow pattern. Ordering Physician: Nevin Black Referring Physician: Magda Parks Performed By: Flory Polanco RVT
== END | disposition home or self-care (01) ==
PROVIDERS: PCP Family Medicine; Referring Provider Physician Assistant; Visit Provider Physician Assistant
DX: I87.1 Compression of vein (principal)
CPT/HCPCS: 93978

== ENCOUNTER → 2024-07-24 | Outpatient (CLI) | payer BC, SELFPAY ==
--- NOTE | 2024-07-24 09:07 | AAVD_ITS ---
Reason For Study: HX Bilateral CIV Stents Inferior Vena Cava Proximal inferior vena cava measures 1.21 x 1.64 cm. in the cross-sectional axis. Proximal inferior vena cava measures 1.21 cm. in the longitudinal axis. Mid inferior vena cava measures 1.18 x 1.30 cm. in the cross-sectional axis. Mid inferior vena cava measures 1.15 cm. in the longitudinal axis. Distal inferior vena cava measures 1.21 x 1.35 cm. in the cross-sectional axis. Distal inferior vena cava measures 1.20 cm. in the longitudinal axis. The inferior vena cava has spontaneous, phasic flow throughout. Left Common Iliac Vein Left common iliac vein measures 1.61 x 1.66 cm. in the cross-sectional axis. Left common iliac vein measures 1.62 cm. in the longitudinal axis. The left common iliac vein has spontaneous, phasic flow throughout. Stent noted throughout the vessel. Right Common Iliac Vein Right common iliac vein measures 1.58 x 1.44 cm. in the cross-sectional axis. Right common iliac vein measures 1.58 cm. in the longitudinal axis. The right common iliac vein has spontaneous, phasic flow throughout. Stent noted throughout the vessel. Procedure Aorta IVC Iliac vasculature or bypass grafts [id number]. The exam was diagnostic. Exam performed in department. VL/Abd Aortic/IVC Duplex scan Interpretation Summary IVC and bilateral iliac vein stents patent with normal venous flow pattern. Ordering Physician: Nevin Black Referring Physician: Charlie Lake Performed By: Mars Klein, RVT
== END | disposition home or self-care (01) ==
LOC: CVS 09:07
PROVIDERS: PCP Nurse Practitioner Family; Referring Provider Physician Assistant; Visit Provider Physician Assistant
DX: I87.1 Compression of vein (principal)
CPT/HCPCS: 93978